=== PATIENT | female | born 1990 | race Caucasian/White ===

== ENCOUNTER 2016-12-09 11:43 | Emergency (ER) | payer OTHER ==
[2016-12-09] MEDS ORDERED: ONDANSETRON 4MG/2ML VIAL (J2405) As Ordered ONE (12:11)
[2016-12-09 12:29] LABS: BASO % 0.2 % (0.0-1.0); EOS % 0.6 % (0.0-3.0); LARGE UNSTAINED CELL # 0.1 K/mm3 (0.0-0.4); LARGE UNSTAINED CELL % 0.9 % (0.0-4.0); LYMPH % 11.3 % (24.0-44.0); MEAN CORPUSCULAR HEMOGLOBIN 32.5 pg (27.0-33.0); MEAN CORPUSCULAR HGB CONC 33.8 g/dl (32.0-36.5); MEAN CORPUSCULAR VOLUME 96.1 fl (80.0-96.0); MONO # 0.2 K/mm3 (0.0-0.8); MONO % 2.4 % (0.0-5.0); NEUTROPHILS # 7.6 K/mm3 (1.8-7.7); NEUTROPHILS % 84.5 % (36.0-66.0); PLATELET COUNT, AUTOMATED 291 k/mm3 (150-450); RED CELL DISTRIBUTION WIDTH 12.6 % (11.5-14.5); WHITE BLOOD COUNT 8.9 K/mm3 (4.0-10.0)
[2016-12-09 12:54] LABS: ALBUMIN/GLOBULIN RATIO 0.93 (1.00-1.93); ALKALINE PHOSPHATASE 44 U/L (45-117); ALT/SGPT 28 U/L (12-78); AMYLASE 127 U/L (25-115); ANION GAP 8 MEQ/L (8-16); AST/SGOT 19 U/L (15-37); BILIRUBIN,DIRECT < 0.1 MG/DL (0.0-0.2); BILIRUBIN,TOTAL 0.3 MG/DL (0.2-1.0); BLOOD UREA NITROGEN 9 MG/DL (7-18); CALCIUM LEVEL 8.7 MG/DL (8.5-10.1); CARBON DIOXIDE LEVEL 28 MEQ/L (21-32); CHLORIDE LEVEL 105 MEQ/L (98-107); CREATININE FOR GFR 0.93 MG/DL (0.55-1.02); GLOMERULAR FILTRATION RATE > 60.0 (>60); GLUCOSE, FASTING 99 MG/DL (70-105); POTASSIUM SERUM 3.8 MEQ/L (3.5-5.1); SODIUM LEVEL 141 MEQ/L (136-145); TOTAL PROTEIN 8.3 GM/DL (6.4-8.2)
[2016-12-09] MEDS ORDERED: KETOROLAC 30 MG/ML VIAL (J1885) As Ordered ONE (13:13)
[2016-12-09 13:28] LABS: AMPHETAMINES LEVEL URINE NEGATIVE (NEGATIVE); BENZODIAZEPINES URINE NEGATIVE (NEGATIVE); COCAINE METABOLITE URINE NEGATIVE (NEGATIVE); CONTROL LINE INT CTR LINE PRESENT; METHADONE URINE NEGATIVE (NEGATIVE); OPIATES URINE NEGATIVE (NEGATIVE); TRICYCLIC ANTIDEPRESS URINE NEGATIVE (NEGATIVE)
--- NOTE | 2016-12-09 14:07 | EDDOCDS ---
Physician Documentation [facility] Name: Samira Braden Age: 26 yrs Sex: Female : 1990 Arrival Date: 12/09/2016 Time: 11:43 Bed I4 / M4 Private MD: Aristeo Rankin [facility] Disposition: 12/09/16 14:00 Discharged to Home/Self Care. Impression: Nausea and vomiting, Diarrhea, unspecified, Generalized abdominal pain. - Condition is Stable. - Discharge Instructions: Abdominal Pain, Adult, Nausea and Vomiting, [id number], Diarrhea, [id number]. - Prescriptions for Reglan 10 mg Oral Tablet - take 1 tablet by ORAL route every 6 hours take 30 minutes before meals and at bedtime; 20 tablet. ZOFRAN ODT 4 mg - dissolve 1 tablet by ORAL route 4 times per day As needed do not chew, do not swallow whole; 10 tablet. ketorolac 10 mg Oral Tablet - take 1 tablet by ORAL route 3 times per day As needed MDD- 30mg. Up to 5 days total use.; 15 tablet. - Medication Reconciliation, Local Pharmacy Hours form. - Follow up: [facility] Aristeo Rankin; When: 1 - 2 days; Reason: Recheck today's complaints, Continuance of care. Follow up: Emergency Department; Reason: Worsening of conditions. - Problem is new. - Symptoms have improved. Historical: - Allergies: no known allergies; - Home Meds: 1. Acyclovir Unknown Oral 2 tabs 2 times per day 2. control 3. medication for UTI - PMHx: Herpes; - PSHx: wisdom tooth; - Social history: Smoking status: Patient states was never smoker of tobacco. No barriers to communication noted, The patient speaks fluent Peruvian, Speaks appropriately for age. - Family history: Not pertinent. - : The pt / caregiver states he / she is not on anticoagulants. Home medication list is obtained from the patient. - Exposure Risk Screening:: None identified. 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 6 in. (167.64 cm) (R); Pain 0/10; 13:32 Pain 2/10; js13 11:45 Body Mass Index 31.47 (88.45 kg, 167.64 cm) rs6 MDM: 12:01 NS 0.9% 1000 ml IV at bolus once ordered. ef1 12:01 Ondansetron 4 mg IVP once ordered. ef1 12:01 IV Saline Lock ordered. ef1 12:01 Undress patient appropriately for examination ordered. ef1 12:01 UCG by Nursing ordered. ef1 12:01 Amylase Ordered. EDMS 12:01 Basic Metabolic Profile Ordered. EDMS 12:01 CBC with Diff Ordered. EDMS 12:01 Lipase Ordered. EDMS 12:02 Liver Profile Ordered. EDMS 12:02 Urinalysis Ordered. EDMS 12:02 Urine Culture Ordered. EDMS 12:02 NOTHING BY MOUTH+DIET ordered. EDMS 12:30 Strep Screen, Nursing ordered. ef1 12:30 Obtain sample by nasopharyngeal swab ordered. ef1 12:31 ketorolac 30 mg IVP once ordered. ef1 12:31 Urine Toxicology Ordered. EDMS 12:31 -Influenza A&B Rapid Antigen - Nose Ordered. EDMS 12:33 Financial registration complete. mpb 12:38 Undo -Financial registration. mpb 12:41 GATS (NEGATIVE STREP SCREEN) Ordered. EDMS 12:53 Financial registration complete. mpb 12:53 [facility] Payment Agreement was scanned into [email or web address] and attached to record. mpb 13:08 Amylase Reviewed. ef1 13:08 CBC with Diff Reviewed. ef1 13:08 Liver Profile Reviewed. ef1 13:08 Basic Metabolic Profile Reviewed. ef1 13:08 Lipase Reviewed. ef1 13:08 -Influenza A&B Rapid Antigen - Nose Reviewed. ef1 13:13 NS 0.9% 1000 ml IV at bolus once ordered. ef1 13:27 Urinalysis Reviewed. ef1 13:53 Urine Toxicology Reviewed. ef1 Point of Care Testing: Urine : 13:12 hCG Reading: Negative; Control Reading: Positive; js13 13:13 hCG Reading: Negative; jam1 Ranges: Administered Medications: 12:24 Drug: NS 0.9% 1000 ml [sodium chloride 0.9 % intravenous solution] Route: IV; Rate: js13 bolus; Site: left antecubital; 13:32 Follow up: IV Status: Completed infusion; IV Intake: 1000ml 13 12:24 Drug: Ondansetron 4 mg [ondansetron HCl 2 mg/mL intravenous solution (2 mL)] Route: js13 IVP; Site: left antecubital; 12:50 Follow up: Response: Nausea is resolved 13 13:17 Drug: ketorolac 30 mg [ketorolac 30 mg/mL (1 mL) injection solution (1 mL)] Route: IVP; 13 Site: left antecubital; 13:32 Follow up: Pain 2/10 Adult; Response: Pain is decreased 13 13:17 Drug: NS 0.9% 1000 ml [sodium chloride 0.9 % intravenous solution] Route: IV; Rate: 13 bolus; Site: left antecubital; 13:49 Follow up: IV Status: Completed infusion; IV Intake: 1000ml 13 Signatures: Dispatcher [employer] EDHelene Treadwell RN RN [facility] Bobbi Rod, PA-C PA-C ef1 Eva Reynoso RN RN js13 Dennis Garcia, Luis Reg mpb The chart was reviewed and I authenticate all verbal orders and agree with the evaluation and treatment provided.Attachments: 12:53 [facility] Payment Agreement mpb MTDD
--- NOTE | 2016-12-09 14:07 | EDDOCDS ---
Nurse's Notes [facility] Name: Samira Braden Age: 26 yrs Sex: Female : 1990 Arrival Date: 12/09/2016 Time: 11:43 Bed I4 / M4 Private MD: Aristeo Rankin [facility] Diagnosis: Nausea and vomiting;Diarrhea, unspecified;Generalized abdominal pain Presentation: 12/09 11:50 Presenting complaint: Patient states: i think i have alcohol poisoning. i don't feel srm like normal hung over. mu vision is blurry, still feel like im drunk, vomited x4 and shit 4 times. cant get back to sleep. im having herpes outbreak and dont know if im reacting to that or if i drank too much. Adult Sepsis Screening: The patient does not have new or worsening altered mentation. Patient's respiratory rate is less than 22. Systolic blood pressure is greater than 100. Patient has a qSOFA score of 0- Negative Sepsis Screen. Suicide/Homicide risk assessment- the patient denies having any suicidal and/or homicidal ideations and does not present with any other emotional, behavioral or mental health complaints. 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 Transition of care: patient was not received from another setting of care. 11:50 Acuity: YONIS Level 3 [facility] 11:50 Method Of Arrival: Walkin/Carried/Asstd [facility] Triage Assessment: 11:53 General: Appears in no apparent distress, Behavior is appropriate for age, cooperative. srm Pain: Denies pain. 11:54 Pt Declines HIV testing. 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 Acyclovir Unknown Oral 2 tabs 2 times per day 2. control 3. medication for UTI - PMHx: Herpes; - PSHx: wisdom tooth; - Social history: Smoking status: Patient states was never smoker of tobacco. No barriers to communication noted, The patient speaks fluent Faroese, Speaks appropriately for age. - Family history: Not pertinent. - : The pt / caregiver states he / she is not on anticoagulants. Home medication list is obtained from the patient. - Exposure Risk Screening:: None identified. Screenin:24 Screening information is obtained from the patient. Fall risk: No risks identified. js13 Assistance ADL's: requires no assistance with activities of daily living. Abuse/DV Screen: The patient / caregiver reports he/she is: not in a situation that causes fear, pain or injury. Nutritional screening: No deficits noted. Advance Directives: There is no active DNR order. home support is adequate. Assessment: 12:24 General: Appears in no apparent distress, Behavior is appropriate for age, cooperative. js13 Pain: Denies pain. Neurological: Level of Consciousness is awake, alert. Respiratory: Airway is patent Respiratory effort is even, unlabored, Respiratory pattern is regular, symmetrical. GI: Abdomen is non- distended Bowel sounds present X 4 quads. Abd is soft and non tender Reports nausea. Derm: Skin is pink, warm & dry. 13:33 General: Appears in no apparent distress, Behavior is appropriate for age, cooperative. js13 Pain: Pain currently is 2 out of 10 on a pain scale. Neurological: Level of Consciousness is awake, alert. Respiratory: Airway is patent Respiratory effort is even, unlabored, Respiratory pattern is regular, symmetrical. GI: Abdomen is non- distended. Derm: Skin is pink, warm & dry. Vital Signs: 11:45 BP 159 / 93 RA Sitting (auto/lg); Pulse 90; Resp 16; Temp 98.2(T); Pulse Ox 100% on rs6 R/A; Weight 88.45 kg (R); Height 5 ft. 6 in. (167.64 cm) (R); Pain 0/10; 13:32 Pain 2/10; js13 11:45 Body Mass Index 31.47 (88.45 kg, 167.64 cm) rs6 Vitals: 11:45 Log In Time: December 09, 2016 at 11:45. rs6 12:39 Strep Screen is obtained and tested: Negative, a GATSNEG culture is ordered in [facility] js13 and sent. ED Course: 11:44 Patient visited by Estela Whatley PCA. rs6 11:44 Aristeo Rankin [facility] is Private Physician. rs6 11:44 Patient moved to Waiting rs6 11:46 Patient visited by Estela Whatley PCA. rs6 11:48 Patient moved to Pre RCE rs6 11:52 Triage Initiated srm 11:54 Bobbi Rod PA-C is PHCP. ef1 11:54 Margarita Cuevas MD is Attending Physician. ef1 12:06 Patient visited by Bobbi Rod PA-C. ef1 12:06 Patient moved to I4 / ef1 12:08 Pt greeted and oriented to ED. Patient advised of names of staff involved in care, jam1 location of call anders, wait times and NPO status. Patient has correct armband on for positive identification. Placed in gown. Bed in low position. Call light in reach. Side rails up X 1. Door closed. 12:23 Amylase Sent. js13 12:24 The patient / caregiver is instructed regarding the plan of care and ED course. js13 12:24 Basic Metabolic Profile Sent. js13 12:24 CBC with Diff Sent. js13 12:24 Lipase Sent. js13 12:24 Liver Profile Sent. js13 12:24 Inserted saline lock: 18 gauge in left antecubital area and blood collected. The js13 patient tolerated the procedure well. No procedures done that require assistance. Labs drawn. (by ED staff). Sent per order to lab. 12:25 Patient visited by Eva Reynoso,AVNI. js13 12:38 -Influenza A&B Rapid Antigen - Nose Sent. js13 12:43 Patient name changed from Samira\S\\S\Sampson\S\ to Samira\S\Ayaka\S\Sampson. EDMS 12:53 [facility] Payment Agreement was scanned into [employer] and attached to record. mpb 12:57 Patient visited by Bobbi Rod PA-C. ef1 13:08 Patient visited by Bobbi Rod PA-C. ef1 13:08 Urine Toxicology Sent. jam1 13:08 Urinalysis Sent. jam1 13:08 Urine Culture Sent. jam1 13:22 Patient visited by Ti Vanessa, AVNI. ml6 13:33 Patient visited by Eva Reynoso,AVNI. js13 14:00 Aristeo Rankin [facility] is Referral Physician. ef1 14:01 Discontinued IV lock intact, bleeding controlled, pressure dressing applied, No js13 redness/swelling at site. Administered Medications: 12:24 Drug: NS 0.9% 1000 ml [sodium chloride 0.9 % intravenous solution] Route: IV; Rate: js13 bolus; Site: left antecubital; 13:32 Follow up: IV Status: Completed infusion; IV Intake: 1000ml 13 12:24 Drug: Ondansetron 4 mg [ondansetron HCl 2 mg/mL intravenous solution (2 mL)] Route: js13 IVP; Site: left antecubital; 12:50 Follow up: Response: Nausea is resolved 13:17 Drug: ketorolac 30 mg [ketorolac 30 mg/mL (1 mL) injection solution (1 mL)] Route: IVP; 13 Site: left antecubital; 13:32 Follow up: Pain 2/10 Adult; Response: Pain is decreased 13:17 Drug: NS 0.9% 1000 ml [sodium chloride 0.9 % intravenous solution] Route: IV; Rate: 13 bolus; Site: left antecubital; 13:49 Follow up: IV Status: Completed infusion; IV Intake: 1000ml 13 Point of Care Testing: Urine : 13:12 hCG Reading: Negative; Control Reading: Positive; 13 13:13 hCG Reading: Negative; jam1 Ranges: Intake: 13:32 IV: 1000.00ml; Total: 1000.00ml. 13:49 IV: 1000.00ml; Total: 2000.00ml. 13 Order Results: Lab Order: Amylase; SPEC'M 12/09/16 12:13 Test: AMYLASE; Value: 127; Range: 25-115; Abnormal: Above high normal; Units: U/L; Status: F Lab Order: Basic Metabolic Profile; SPEC'M 12/09/16 12:13 Test: GLUCOSE, FASTING; Value: 99; Range: 70-105; Units: MG/DL; Status: F Test: BLOOD UREA NITROGEN; Value: 9; Range: 7-18; Units: MG/DL; Status: F Test: CREATININE FOR GFR; Value: 0.93; Range: 0.55-1.02; Units: MG/DL; Status: F Test: GLOMERULAR FILTRATION RATE; Value: > 60.0; Range: >60; Status: F Test: SODIUM LEVEL; Value: 141; Range: 136-145; Units: MEQ/L; Status: F Test: POTASSIUM SERUM; Value: 3.8; Range: 3.5-5.1; Units: MEQ/L; Status: F Test: CHLORIDE LEVEL; Value: 105; Range: 98-107; Units: MEQ/L; Status: F Test: CARBON DIOXIDE LEVEL; Value: 28; Range: 21-32; Units: MEQ/L; Status: F Test: ANION GAP; Value: 8; Range: 8-16; Units: MEQ/L; Status: F Test: CALCIUM LEVEL; Value: 8.7; Range: 8.5-10.1; Units: MG/DL; Status: F Test Note: ; Units are mL/min/1.73 m2 Chronic Kidney Disease Staging per NKF: Stage I & II GFR >=60 Normal to Mildly Decreased Stage III GFR 30-59 Moderately Decreased Stage IV GFR 15-29 Severely Decreased Stage V GFR <15 Very Little GFR Left ESRD GFR <15 on CLINICAL DOCUMENTATION DEVELOPER Lab Order: CBC with Diff; SPEC'M 12/09/16 12:13 Test: WHITE BLOOD COUNT; Value: 8.9; Range: 4.0-10.0; Units: K/mm3; Status: F Test: RED BLOOD COUNT; Value: 4.22; Range: 4.00-5.40; Units: M/mm3; Status: F Test: HEMOGLOBIN; Value: 13.7; Range: 12.0-16.0; Units: g/dl; Status: F Test: HEMATOCRIT; Value: 40.6; Range: 36.0-47.0; Units: %; Status: F Test: MEAN CORPUSCULAR VOLUME; Value: 96.1; Range: 80.0-96.0; Abnormal: Above high normal; Units: fl; Status: F Test: MEAN CORPUSCULAR HEMOGLOBIN; Value: 32.5; Range: 27.0-33.0; Units: pg; Status: F Test: MEAN CORPUSCULAR HGB CONC; Value: 33.8; Range: 32.0-36.5; Units: g/dl; Status: F Test: RED CELL DISTRIBUTION WIDTH; Value: 12.6; Range: 11.5-14.5; Units: %; Status: F Test: PLATELET COUNT, AUTOMATED; Value: 291; Range: 150-450; Units: k/mm3; Status: F Test: NEUTROPHILS %; Value: 84.5; Range: 36.0-66.0; Abnormal: Above high normal; Units: %; Status: F Test: LYMPH %; Value: 11.3; Range: 24.0-44.0; Abnormal: Below low normal; Units: %; Status: F Test: MONO %; Value: 2.4; Range: 0.0-5.0; Units: %; Status: F Test: EOS %; Value: 0.6; Range: 0.0-3.0; Units: %; Status: F Test: BASO %; Value: 0.2; Range: 0.0-1.0; Units: %; Status: F Test: LARGE UNSTAINED CELL %; Value: 0.9; Range: 0.0-4.0; Units: %; Status: F Test: NEUTROPHILS #; Value: 7.6; Range: 1.8-7.7; Units: K/mm3; Status: F Test: LYMPH #; Value: 1.0; Range: 1.5-6.5; Abnormal: Below low normal; Units: K/mm3; Status: F Test: MONO #; Value: 0.2; Range: 0.0-0.8; Units: K/mm3; Status: F Test: EOS #; Value: 0.0; Range: 0.0-0.50; Units: K/mm3; Status: F Test: BASO #; Value: 0.0; Range: 0.0-0.2; Units: K/mm3; Status: F Test: LARGE UNSTAINED CELL #; Value: 0.1; Range: 0.0-0.4; Units: K/mm3; Status: F Lab Order: Lipase; SPEC' 12/09/16 12:13 Test: LIPASE; Value: 112; Range: 73-393; Units: U/L; Status: F Lab Order: Liver Profile; SPEC' 12/09/16 12:13 Test: AST/SGOT; Value: 19; Range: 15-37; Units: U/L; Status: F Test: ALT/SGPT; Value: 28; Range: 12-78; Units: U/L; Status: F Test: ALKALINE PHOSPHATASE; Value: 44; Range: 45-117; Abnormal: Below low normal; Units: U/L; Status: F Test: BILIRUBIN,TOTAL; Value: 0.3; Range: 0.2-1.0; Units: MG/DL; Status: F Test: BILIRUBIN,DIRECT; Value: < 0.1; Range: 0.0-0.2; Units: MG/DL; Status: F Test: TOTAL PROTEIN; Value: 8.3; Range: 6.4-8.2; Abnormal: Above high normal; Units: GM/DL; Status: F Test: ALBUMIN; Value: 4.0; Range: 3.2-5.2; Units: GM/DL; Status: F Test: ALBUMIN/GLOBULIN RATIO; Value: 0.93; Range: 1.00-1.93; Abnormal: Below low normal; Status: F Lab Order: Urinalysis; SPEC'M 12/09/16 13:08 Test: APPEARANCE, URINE; Value: CLEAR; Range: CLEAR; Status: F Test: COLOR, URINE; Value: YELLOW; Range: YELLOW; Status: F Test: PH,URINE; Value: 8.0; Range: 5.0-9.0; Units: UNITS; Status: F Test: SPECIFIC GRAVITY URINE AUTO; Value: 1.021; Range: 1.002-1.035; Status: F Test: PROTEIN, URINE AUTO; Value: 1+; Range: NEGATIVE; Abnormal: Above high normal; Units: mg/dL; Status: F Test: GLUCOSE, URINE (UA) AUTO; Value: NEGATIVE; Range: NEGATIVE; Units: mg/dL; Status: F Test: KETONE, URINE AUTO; Value: NEGATIVE; Range: NEGATIVE; Units: mg/dL; Status: F Test: UROBILINOGEN, URINE AUTO; Value: 0.2; Range: 0.0-2.0; Units: mg/dL; Status: F Test: BILIRUBIN, URINE AUTO; Value: NEGATIVE; Range: NEGATIVE; Status: F Test: NITRITE, URINE AUTO; Value: NEGATIVE; Range: NEGATIVE; Status: F Test: LEUKOCYTE ESTERASE, URINE AUTO; Value: NEGATIVE; Range: NEGATIVE; Status: F Test: BLOOD, URINE BLOOD; Value: NEGATIVE; Range: NEGATIVE; Status: F Test: WBC, URINE AUTO; Value: 1; Range: 0-3; Units: /HPF; Status: F Test: RBC, URINE AUTO; Value: 2; Range: 0-3; Units: /HPF; Status: F Test: BACTERIA, URINE AUTO; Value: 1+; Range: NEGATIVE; Abnormal: Above high normal; Status: F Test: SQUAMOUS EPITHELIAL CELL UR AU; Value: 1; Range: 0-6; Units: /HPF; Status: F Test: MUCUS, URINE; Value: SMALL; Range: NEGATIVE; Status: F Test: HYALINE CAST, URINE AUTO; Value: 0; Range: 0-1; Units: /LPF; Status: F Lab Order: Urine Toxicology; SPEC'M 12/09/16 13:08 Test: AMPHETAMINES LEVEL URINE; Value: NEGATIVE; Range: NEGATIVE; Status: F Test: BARBITURATES URINE; Value: NEGATIVE; Range: NEGATIVE; Status: F Test: BENZODIAZEPINES URINE; Value: NEGATIVE; Range: NEGATIVE; Status: F Test: CANNABINOIDS URINE; Value: NEGATIVE; Range: NEGATIVE; Status: F Test: COCAINE METABOLITE URINE; Value: NEGATIVE; Range: NEGATIVE; Status: F Test: METHADONE URINE; Value: NEGATIVE; Range: NEGATIVE; Status: F Test: OPIATES URINE; Value: NEGATIVE; Range: NEGATIVE; Status: F Test: TRICYCLIC ANTIDEPRESS URINE; Value: NEGATIVE; Range: NEGATIVE; Status: F Test Note: ; ALL PRESUMPTIVE POSITIVE FINDINGS ARE UNCONFIRMED NORMAL VALUES THRESHOLD IN NG/ML AMPHETAMINES 1000 METHAMPHETAMINES 1000 BARBITURATES 300 BENZODIAZEPINES 300 CANNABINOIDS (THC) 50 COCAINE METABOLITE 300 METHADONE 300 OPIATES 300 PHENCYCLIDINE 25 TRICYCLIC ANTIDEPRESSANTS 1000 RESULTS ARE FOR MEDICAL PURPOSES ONLY. ALL URINE SPECIMENS WILL BE SAVED FOR 3 DAYS. IF CONFIRMATION OF A PRESUMPTIVE POSTIVE SCREEN RESULT IS DESIRED, CALL CHEMISTRY ([phone]) AND REQUEST URINE TO BE SENT TO REFERENCE LAB. FOR A LIST OF CLOSELY RELATED COMPOUNDS PLEASE CALL THE LAB. Lab Order: -Influenza A&B Rapid Antigen - Nose; SPEC'M 12/09/16 12:33 Test: INFLUENZA A RAPID SCR by ICA; Value: INFLUENZA A RESULTS NEGATIVE; Status: F Test: INFLUENZA A RAPID SCR by ICA; Value: Comments:; Status: F Test: INFLUENZA B RAPID SCR by ICA; Value: INFLUENZA B RESULTS NEGATIVE; Status: F Test Note: ; The Influenza test is a direct rapid immunoassay for the qualitative detection of Influenza viral antigen. Cell culture (Viral Culture) testing should be considered to confirm NEGATIVE results and to assist in detecting other viruses that can provide similar clinical symptoms. Please contact the lab within 24 hours ([phone]) if confirmatory testing is desired. Outcome: 14:00 Discharge ordered by Provider. ef1 14:01 Discharge Assessment: Patient awake, alert and oriented x 3. No cognitive and/or js13 functional deficits noted. Patient verbalized understanding of disposition instructions. patient administered narcotics - no. The following High Risk Discharge criteria are identified: None. Discharged to home ambulatory. Condition: stable. Discharge instructions given to patient, Instructed on discharge instructions, follow up and referral plans. medication usage, Demonstrated understanding of instructions, medications, Pt was receptive of discharge instructions/ teaching. Prescriptions given X 3. No special radiology studies were completed. Property :Personal belongings accompany Pt. 14:06 Patient left the ED. js13 Signatures: Dispatcher [employer] EDMS Helene Forrest, RN RN Shantel Cristina, FINISHING MACHINE OPERATOR FINISHING MACHINE OPERATOR jam1 Bobbi Rod, PA-C PA-C ef1 Ti Vanessa, RN RN ml6 Eva Reynoso RN RN js13 Estela Whatley, FINISHING MACHINE OPERATOR FINISHING MACHINE OPERATOR rs6 Dennis Garcia, Reg Reg mpb MTDD
--- NOTE | 2016-12-11 15:07 | EDDOCDS ---
Physician Documentation [facility] Name: Samira Braden Age: 26 yrs Sex: Female : 1990 Arrival Date: 12/09/2016 Time: 11:43 Bed I4 / M4 Private MD: Aristeo Rankin [facility] Disposition: 12/09/16 14:00 Discharged to Home/Self Care. Impression: Nausea and vomiting, Diarrhea, unspecified, Generalized abdominal pain. - Condition is Stable. - Discharge Instructions: Abdominal Pain, Adult, Nausea and Vomiting, [id number], Diarrhea, [id number]. - Prescriptions for Reglan 10 mg Oral Tablet - take 1 tablet by ORAL route every 6 hours take 30 minutes before meals and at bedtime; 20 tablet. ZOFRAN ODT 4 mg - dissolve 1 tablet by ORAL route 4 times per day As needed do not chew, do not swallow whole; 10 tablet. ketorolac 10 mg Oral Tablet - take 1 tablet by ORAL route 3 times per day As needed MDD- 30mg. Up to 5 days total use.; 15 tablet. - Medication Reconciliation, Local Pharmacy Hours form. - Follow up: [facility] Aristeo Rankin; When: 1 - 2 days; Reason: Recheck today's complaints, Continuance of care. Follow up: Emergency Department; Reason: Worsening of conditions. - Problem is new. - Symptoms have improved. Historical: - Allergies: no known allergies; - Home Meds: 1. Acyclovir Unknown Oral 2 tabs 2 times per day 2. control 3. medication for UTI - PMHx: Herpes; - PSHx: wisdom tooth; - Social history: Smoking status: Patient states was never smoker of tobacco. No barriers to communication noted, The patient speaks fluent Malagasy, Speaks appropriately for age. - Family history: Not pertinent. - : The pt / caregiver states he / she is not on anticoagulants. Home medication list is obtained from the patient. - Exposure Risk Screening:: None identified. 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 6 in. (167.64 cm) (R); Pain 0/10; 13:32 Pain 2/10; js13 14:08 BP 159 / 69; Pulse 68; Resp 20; Temp 98.4; Pulse Ox 99% ; Pain 0/10; jam1 11:45 Body Mass Index 31.47 (88.45 kg, 167.64 cm) rs6 MDM: 12:01 NS 0.9% 1000 ml IV at bolus once ordered. ef1 12:01 Ondansetron 4 mg IVP once ordered. ef1 12:01 IV Saline Lock ordered. ef1 12:01 Undress patient appropriately for examination ordered. ef1 12:01 UCG by Nursing ordered. ef1 12:01 Amylase Ordered. EDMS 12:01 Basic Metabolic Profile Ordered. EDMS 12:01 CBC with Diff Ordered. EDMS 12:01 Lipase Ordered. EDMS 12:02 Liver Profile Ordered. EDMS 12:02 Urinalysis Ordered. EDMS 12:02 Urine Culture Ordered. EDMS 12:02 NOTHING BY MOUTH+DIET ordered. EDMS 12:30 Strep Screen, Nursing ordered. ef1 12:30 Obtain sample by nasopharyngeal swab ordered. ef1 12:31 ketorolac 30 mg IVP once ordered. ef1 12:31 Urine Toxicology Ordered. EDMS 12:31 -Influenza A&B Rapid Antigen - Nose Ordered. EDMS 12:33 Financial registration complete. mpb 12:38 Undo -Financial registration. mpb 12:41 GATS (NEGATIVE STREP SCREEN) Ordered. EDMS 12:53 Financial registration complete. mpb 12:53 [facility] Payment Agreement was scanned into RFEyeD and attached to record. mpb 13:08 Amylase Reviewed. ef1 13:08 CBC with Diff Reviewed. ef1 13:08 Liver Profile Reviewed. ef1 13:08 Basic Metabolic Profile Reviewed. ef1 13:08 Lipase Reviewed. ef1 13:08 -Influenza A&B Rapid Antigen - Nose Reviewed. ef1 13:13 NS 0.9% 1000 ml IV at bolus once ordered. ef1 13:27 Urinalysis Reviewed. ef1 13:53 Urine Toxicology Reviewed. ef1 14:15 T-Sheet-- Draft Copy was scanned into RFEyeD and attached to record. gb Point of Care Testing: Urine : 13:12 hCG Reading: Negative; Control Reading: Positive; js13 13:13 hCG Reading: Negative; jam1 Ranges: Administered Medications: 12:24 Drug: NS 0.9% 1000 ml [sodium chloride 0.9 % intravenous solution] Route: IV; Rate: js13 bolus; Site: left antecubital; 13:32 Follow up: IV Status: Completed infusion; IV Intake: 1000ml js13 12:24 Drug: Ondansetron 4 mg [ondansetron HCl 2 mg/mL intravenous solution (2 mL)] Route: js13 IVP; Site: left antecubital; 12:50 Follow up: Response: Nausea is resolved 13 13:17 Drug: ketorolac 30 mg [ketorolac 30 mg/mL (1 mL) injection solution (1 mL)] Route: IVP; 13 Site: left antecubital; 13:32 Follow up: Pain 2/10 Adult; Response: Pain is decreased 13:17 Drug: NS 0.9% 1000 ml [sodium chloride 0.9 % intravenous solution] Route: IV; Rate: js13 bolus; Site: left antecubital; 13:49 Follow up: IV Status: Completed infusion; IV Intake: 1000ml Signatures: Dispatcher MedHost EDHelene Treadwell RN RN [facility] Sarah Kaye, Reg Reg gb Bobbi Rod PAJosette PA-C ef1 Eva ReynosoRN RN js13 Dennis Garcia, Reg Reg mpb The chart was reviewed and I authenticate all verbal orders and agree with the evaluation and treatment provided.Attachments: 12:53 [facility] [place] [facility] [place] Agreement mpb 14:15 T-Sheet-- Draft Copy Chart Complete MTDD
--- NOTE | 2016-12-11 15:07 | EDDOCDS ---
Nurse's Notes [facility] Name: Samira Braden Age: 26 yrs Sex: Female : 1990 Arrival Date: 12/09/2016 Time: 11:43 Bed I4 / M4 Private MD: Aristeo Rankin [facility] Diagnosis: Nausea and vomiting;Diarrhea, unspecified;Generalized abdominal pain Presentation: 12/09 11:50 Presenting complaint: Patient states: i think i have alcohol poisoning. i don't feel srm like normal hung over. mu vision is blurry, still feel like im drunk, vomited x4 and shit 4 times. cant get back to sleep. im having herpes outbreak and dont know if im reacting to that or if i drank too much. Adult Sepsis Screening: The patient does not have new or worsening altered mentation. Patient's respiratory rate is less than 22. Systolic blood pressure is greater than 100. Patient has a qSOFA score of 0- Negative Sepsis Screen. Suicide/Homicide risk assessment- the patient denies having any suicidal and/or homicidal ideations and does not present with any other emotional, behavioral or mental health complaints. 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 Transition of care: patient was not received from another setting of care. 11:50 Acuity: YONIS Level 3 [facility] [place] 11:50 Method Of Arrival: Walkin/Carried/[place] [facility] [place] Assessment: 11:53 General: Appears in no apparent distress, Behavior is appropriate for age, cooperative. srm Pain: Denies pain. 11:54 Pt Declines HIV testing. 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 Acyclovir Unknown Oral 2 tabs 2 times per day 2. control 3. medication for UTI - PMHx: Herpes; - PSHx: wisdom tooth; - Social history: Smoking status: Patient states was never smoker of tobacco. No barriers to communication noted, The patient speaks fluent Syriac, Speaks appropriately for age. - Family history: Not pertinent. - : The pt / caregiver states he / she is not on anticoagulants. Home medication list is obtained from the patient. - Exposure Risk Screening:: None identified. Screenin:24 Screening information is obtained from the patient. Fall risk: No risks identified. js13 Assistance ADL's: requires no assistance with activities of daily living. Abuse/DV Screen: The patient / caregiver reports he/she is: not in a situation that causes fear, pain or injury. Nutritional screening: No deficits noted. Advance Directives: There is no active DNR order. home support is adequate. Assessment: 12:24 General: Appears in no apparent distress, Behavior is appropriate for age, cooperative. js13 Pain: Denies pain. Neurological: Level of Consciousness is awake, alert. Respiratory: Airway is patent Respiratory effort is even, unlabored, Respiratory pattern is regular, symmetrical. GI: Abdomen is non- distended Bowel sounds present X 4 quads. Abd is soft and non tender Reports nausea. Derm: Skin is pink, warm & dry. 13:33 General: Appears in no apparent distress, Behavior is appropriate for age, cooperative. js13 Pain: Pain currently is 2 out of 10 on a pain scale. Neurological: Level of Consciousness is awake, alert. Respiratory: Airway is patent Respiratory effort is even, unlabored, Respiratory pattern is regular, symmetrical. GI: Abdomen is non- distended. Derm: Skin is pink, warm & dry. Vital Signs: 11:45 BP 159 / 93 RA Sitting (auto/lg); Pulse 90; Resp 16; Temp 98.2(T); Pulse Ox 100% on rs6 R/A; Weight 88.45 kg (R); Height 5 ft. 6 in. (167.64 cm) (R); Pain 0/10; 13:32 Pain 2/10; js13 14:08 BP 159 / 69; Pulse 68; Resp 20; Temp 98.4; Pulse Ox 99% ; Pain 0/10; jam1 11:45 Body Mass Index 31.47 (88.45 kg, 167.64 cm) rs6 Vitals: 11:45 Log In Time: December 09, 2016 at 11:45. rs6 12:39 Strep Screen is obtained and tested: Negative, a GATSNEG culture is ordered in [facility] js13 and sent. ED Course: 11:44 Patient visited by Estela Whatley PCA. rs6 11:44 [facility] rs6 11:44 Patient moved to Waiting rs6 11:46 Patient visited by Estela Whatley PCA. rs6 11:48 Patient moved to Pre RCE rs6 11:52 Triage Initiated srm 11:54 Bobbi Rod PA-C is [facility]. ef1 11:54 Margarita Cuevas MD is Attending Physician. ef1 12:06 Patient visited by Bobbi Rod PA-C. ef1 12:06 Patient moved to I4 / M4 ef1 12:08 Pt greeted and oriented to ED. Patient advised of names of staff involved in care, jam1 location of call anders, wait times and NPO status. Patient has correct armband on for positive identification. Placed in gown. Bed in low position. Call light in reach. Side rails up X 1. Door closed. 12:23 Amylase Sent. js13 12:24 The patient / caregiver is instructed regarding the plan of care and ED course. js13 12:24 Basic Metabolic Profile Sent. js13 12:24 CBC with Diff Sent. js13 12:24 Lipase Sent. js13 12:24 Liver Profile Sent. js13 12:24 Inserted saline lock: 18 gauge in left antecubital area and blood collected. The js13 patient tolerated the procedure well. No procedures done that require assistance. Labs drawn. (by ED staff). Sent per order to lab. 12:25 Patient visited by Eva Reynoso RN. js13 12:38 -Influenza A&B Rapid Antigen - Nose Sent. js13 12:43 Patient name changed from Samira\S\\S\Sampson\S\ to Samira\S\Ayaka\S\Sampson. EDMS 12:53 [facility] Payment Agreement was scanned into Qualtré and attached to record. mpb 12:57 Patient visited by Bobbi Rod PA-C. ef1 13:08 Patient visited by Bobbi Rod PA-C. ef1 13:08 Urine Toxicology Sent. jam1 13:08 Urinalysis Sent. jam1 13:08 Urine Culture Sent. jam1 13:22 Patient visited by Ti Vanessa RN. ml6 13:33 Patient visited by Eva Reynoso,AVNI. js13 14:00 Aristeo Rankin [facility] is Referral Physician. ef1 14:01 Discontinued IV lock intact, bleeding controlled, pressure dressing applied, No js13 redness/swelling at site. 14:15 T-Sheet-- Draft Copy was scanned into Qualtré and attached to record. gb Administered Medications: 12:24 Drug: NS 0.9% 1000 ml [sodium chloride 0.9 % intravenous solution] Route: IV; Rate: js13 bolus; Site: left antecubital; 13:32 Follow up: IV Status: Completed infusion; IV Intake: 1000ml 13 12:24 Drug: Ondansetron 4 mg [ondansetron HCl 2 mg/mL intravenous solution (2 mL)] Route: js13 IVP; Site: left antecubital; 12:50 Follow up: Response: Nausea is resolved 13 13:17 Drug: ketorolac 30 mg [ketorolac 30 mg/mL (1 mL) injection solution (1 mL)] Route: IVP; 13 Site: left antecubital; 13:32 Follow up: Pain 2/10 Adult; Response: Pain is decreased 13 13:17 Drug: NS 0.9% 1000 ml [sodium chloride 0.9 % intravenous solution] Route: IV; Rate: js13 bolus; Site: left antecubital; 13:49 Follow up: IV Status: Completed infusion; IV Intake: 1000ml 13 Point of Care Testing: Urine : 13:12 hCG Reading: Negative; Control Reading: Positive; 13 13:13 hCG Reading: Negative; jam1 Ranges: Intake: 13:32 IV: 1000.00ml; Total: 1000.00ml. 13 13:49 IV: 1000.00ml; Total: 2000.00ml. js13 Order Results: Lab Order: Amylase; SPEC'M 12/09/16 12:13 Test: AMYLASE; Value: 127; Range: 25-115; Abnormal: Above high normal; Units: U/L; Status: F Lab Order: Basic Metabolic Profile; SPEC'M 12/09/16 12:13 Test: GLUCOSE, FASTING; Value: 99; Range: 70-105; Units: MG/DL; Status: F Test: BLOOD UREA NITROGEN; Value: 9; Range: 7-18; Units: MG/DL; Status: F Test: CREATININE FOR GFR; Value: 0.93; Range: 0.55-1.02; Units: MG/DL; Status: F Test: GLOMERULAR FILTRATION RATE; Value: > 60.0; Range: >60; Status: F Test: SODIUM LEVEL; Value: 141; Range: 136-145; Units: MEQ/L; Status: F Test: POTASSIUM SERUM; Value: 3.8; Range: 3.5-5.1; Units: MEQ/L; Status: F Test: CHLORIDE LEVEL; Value: 105; Range: 98-107; Units: MEQ/L; Status: F Test: CARBON DIOXIDE LEVEL; Value: 28; Range: 21-32; Units: MEQ/L; Status: F Test: ANION GAP; Value: 8; Range: 8-16; Units: MEQ/L; Status: F Test: CALCIUM LEVEL; Value: 8.7; Range: 8.5-10.1; Units: MG/DL; Status: F Test Note: ; Units are mL/min/1.73 m2 Chronic Kidney Disease Staging per NKF: Stage I & II GFR >=60 Normal to Mildly Decreased Stage III GFR 30-59 Moderately Decreased Stage IV GFR 15-29 Severely Decreased Stage V GFR <15 Very Little GFR Left ESRD GFR <15 on CLINICAL LABORATORY SCIENCE PROFESSOR Lab Order: CBC with Diff; SPEC'M 12/09/16 12:13 Test: WHITE BLOOD COUNT; Value: 8.9; Range: 4.0-10.0; Units: K/mm3; Status: F Test: RED BLOOD COUNT; Value: 4.22; Range: 4.00-5.40; Units: M/mm3; Status: F Test: HEMOGLOBIN; Value: 13.7; Range: 12.0-16.0; Units: g/dl; Status: F Test: HEMATOCRIT; Value: 40.6; Range: 36.0-47.0; Units: %; Status: F Test: MEAN CORPUSCULAR VOLUME; Value: 96.1; Range: 80.0-96.0; Abnormal: Above high normal; Units: fl; Status: F Test: MEAN CORPUSCULAR HEMOGLOBIN; Value: 32.5; Range: 27.0-33.0; Units: pg; Status: F Test: MEAN CORPUSCULAR HGB CONC; Value: 33.8; Range: 32.0-36.5; Units: g/dl; Status: F Test: RED CELL DISTRIBUTION WIDTH; Value: 12.6; Range: 11.5-14.5; Units: %; Status: F Test: PLATELET COUNT, AUTOMATED; Value: 291; Range: 150-450; Units: k/mm3; Status: F Test: NEUTROPHILS %; Value: 84.5; Range: 36.0-66.0; Abnormal: Above high normal; Units: %; Status: F Test: LYMPH %; Value: 11.3; Range: 24.0-44.0; Abnormal: Below low normal; Units: %; Status: F Test: MONO %; Value: 2.4; Range: 0.0-5.0; Units: %; Status: F Test: EOS %; Value: 0.6; Range: 0.0-3.0; Units: %; Status: F Test: BASO %; Value: 0.2; Range: 0.0-1.0; Units: %; Status: F Test: LARGE UNSTAINED CELL %; Value: 0.9; Range: 0.0-4.0; Units: %; Status: F Test: NEUTROPHILS #; Value: 7.6; Range: 1.8-7.7; Units: K/mm3; Status: F Test: LYMPH #; Value: 1.0; Range: 1.5-6.5; Abnormal: Below low normal; Units: K/mm3; Status: F Test: MONO #; Value: 0.2; Range: 0.0-0.8; Units: K/mm3; Status: F Test: EOS #; Value: 0.0; Range: 0.0-0.50; Units: K/mm3; Status: F Test: BASO #; Value: 0.0; Range: 0.0-0.2; Units: K/mm3; Status: F Test: LARGE UNSTAINED CELL #; Value: 0.1; Range: 0.0-0.4; Units: K/mm3; Status: F Lab Order: Lipase; SPEC'M 12/09/16 12:13 Test: LIPASE; Value: 112; Range: 73-393; Units: U/L; Status: F Lab Order: Liver Profile; SPEC'M 12/09/16 12:13 Test: AST/SGOT; Value: 19; Range: 15-37; Units: U/L; Status: F Test: ALT/SGPT; Value: 28; Range: 12-78; Units: U/L; Status: F Test: ALKALINE PHOSPHATASE; Value: 44; Range: 45-117; Abnormal: Below low normal; Units: U/L; Status: F Test: BILIRUBIN,TOTAL; Value: 0.3; Range: 0.2-1.0; Units: MG/DL; Status: F Test: BILIRUBIN,DIRECT; Value: < 0.1; Range: 0.0-0.2; Units: MG/DL; Status: F Test: TOTAL PROTEIN; Value: 8.3; Range: 6.4-8.2; Abnormal: Above high normal; Units: GM/DL; Status: F Test: ALBUMIN; Value: 4.0; Range: 3.2-5.2; Units: GM/DL; Status: F Test: ALBUMIN/GLOBULIN RATIO; Value: 0.93; Range: 1.00-1.93; Abnormal: Below low normal; Status: F Lab Order: Urinalysis; SPEC'M 12/09/16 13:08 Test: APPEARANCE, URINE; Value: CLEAR; Range: CLEAR; Status: F Test: COLOR, URINE; Value: YELLOW; Range: YELLOW; Status: F Test: PH,URINE; Value: 8.0; Range: 5.0-9.0; Units: UNITS; Status: F Test: SPECIFIC GRAVITY URINE AUTO; Value: 1.021; Range: 1.002-1.035; Status: F Test: PROTEIN, URINE AUTO; Value: 1+; Range: NEGATIVE; Abnormal: Above high normal; Units: mg/dL; Status: F Test: GLUCOSE, URINE (UA) AUTO; Value: NEGATIVE; Range: NEGATIVE; Units: mg/dL; Status: F Test: KETONE, URINE AUTO; Value: NEGATIVE; Range: NEGATIVE; Units: mg/dL; Status: F Test: UROBILINOGEN, URINE AUTO; Value: 0.2; Range: 0.0-2.0; Units: mg/dL; Status: F Test: BILIRUBIN, URINE AUTO; Value: NEGATIVE; Range: NEGATIVE; Status: F Test: NITRITE, URINE AUTO; Value: NEGATIVE; Range: NEGATIVE; Status: F Test: LEUKOCYTE ESTERASE, URINE AUTO; Value: NEGATIVE; Range: NEGATIVE; Status: F Test: BLOOD, URINE BLOOD; Value: NEGATIVE; Range: NEGATIVE; Status: F Test: WBC, URINE AUTO; Value: 1; Range: 0-3; Units: /HPF; Status: F Test: RBC, URINE AUTO; Value: 2; Range: 0-3; Units: /HPF; Status: F Test: BACTERIA, URINE AUTO; Value: 1+; Range: NEGATIVE; Abnormal: Above high normal; Status: F Test: SQUAMOUS EPITHELIAL CELL UR AU; Value: 1; Range: 0-6; Units: /HPF; Status: F Test: MUCUS, URINE; Value: SMALL; Range: NEGATIVE; Status: F Test: HYALINE CAST, URINE AUTO; Value: 0; Range: 0-1; Units: /LPF; Status: F Lab Order: Urine Culture; SPEC'M 12/09/16 13:08 Test: URINE CULTURE; Value: <EXTERNAL COMMENT eCWMed> FULL REPORT IN LAB NOTES (eCW and Medent).; Status: F Test: URINE CULTURE; Value: URINE CULTURE RESULT NO GROWTH; Status: F Lab Order: Urine Toxicology; SPEC'M 12/09/16 13:08 Test: AMPHETAMINES LEVEL URINE; Value: NEGATIVE; Range: NEGATIVE; Status: F Test: BARBITURATES URINE; Value: NEGATIVE; Range: NEGATIVE; Status: F Test: BENZODIAZEPINES URINE; Value: NEGATIVE; Range: NEGATIVE; Status: F Test: CANNABINOIDS URINE; Value: NEGATIVE; Range: NEGATIVE; Status: F Test: COCAINE METABOLITE URINE; Value: NEGATIVE; Range: NEGATIVE; Status: F Test: METHADONE URINE; Value: NEGATIVE; Range: NEGATIVE; Status: F Test: OPIATES URINE; Value: NEGATIVE; Range: NEGATIVE; Status: F Test: TRICYCLIC ANTIDEPRESS URINE; Value: NEGATIVE; Range: NEGATIVE; Status: F Test Note: ; ALL PRESUMPTIVE POSITIVE FINDINGS ARE UNCONFIRMED NORMAL VALUES THRESHOLD IN NG/ML AMPHETAMINES 1000 METHAMPHETAMINES 1000 BARBITURATES 300 BENZODIAZEPINES 300 CANNABINOIDS (THC) 50 COCAINE METABOLITE 300 METHADONE 300 OPIATES 300 PHENCYCLIDINE 25 TRICYCLIC ANTIDEPRESSANTS 1000 RESULTS ARE FOR MEDICAL PURPOSES ONLY. ALL URINE SPECIMENS WILL BE SAVED FOR 3 DAYS. IF CONFIRMATION OF A PRESUMPTIVE POSTIVE SCREEN RESULT IS DESIRED, CALL CHEMISTRY ([phone]) AND REQUEST URINE TO BE SENT TO REFERENCE LAB. FOR A LIST OF CLOSELY RELATED COMPOUNDS PLEASE CALL THE LAB. Lab Order: -Influenza A&B Rapid Antigen - Nose; SPEC'M 02/05/17 12:33 Test: INFLUENZA A RAPID SCR by ICA; Value: INFLUENZA A RESULTS NEGATIVE; Status: F Test: INFLUENZA A RAPID SCR by ICA; Value: Comments:; Status: F Test: INFLUENZA B RAPID SCR by ICA; Value: INFLUENZA B RESULTS NEGATIVE; Status: F Test Note: ; The Influenza test is a direct rapid immunoassay for the qualitative detection of Influenza viral antigen. Cell culture (Viral Culture) testing should be considered to confirm NEGATIVE results and to assist in detecting other viruses that can provide similar clinical symptoms. Please contact the lab within 24 hours ([phone]) if confirmatory testing is desired. Lab Order: GATS (NEGATIVE STREP SCREEN); SPEC'M 12/09/16 12:33 Test: GATS CULTURE (NEG STREP SCR); Value: GATS RESULT NEGATIVE FOR STREP PYOGENES (GROUP A); Status: F Test: GATS CULTURE (NEG STREP SCR); Value: <EXTERNAL COMMENT eCWMed> FULL REPORT IN LAB NOTES (eCW and Medent).; Status: F Test: GATS CULTURE (NEG STREP SCR); Value: ORGANISM 1: STREP AGALACTIAE GROUP B; Status: F Test: GATS CULTURE (NEG STREP SCR); Value: STREP AGALACTIAE GROUP B; Status: F Test: GATS CULTURE (NEG STREP SCR); Value: QUANTITY OF GROWTH FEW; Status: F Outcome: 14:00 Discharge ordered by Provider. ef1 14:01 Discharge Assessment: Patient awake, alert and oriented x 3. No cognitive and/or js13 functional deficits noted. Patient verbalized understanding of disposition instructions. patient administered narcotics - no. The following High Risk Discharge criteria are identified: None. Discharged to home ambulatory. Condition: stable. Discharge instructions given to patient, Instructed on discharge instructions, follow up and referral plans. medication usage, Demonstrated understanding of instructions, medications, Pt was receptive of discharge instructions/ teaching. Prescriptions given X 3. No special radiology studies were completed. Property :Personal belongings accompany Pt. 14:06 Patient left the ED. js13 Signatures: Dispatcher MedHost EDMS Helene Forrest, RN RN Shantel Cristina, ABENA HIDE PULLER jam1 Sarah Kaye, Reg Reg gb Bobbi Rod, PA-C PA-C ef1 Ti Vanessa RN RN ml6 Eva Reynoso RN RN js13 Phylicia Estela, HIDE PULLER HIDE PULLER rs6 Dennis Garcia, Reg Reg mpb Chart Complete MTDD
--- NOTE | 2016-12-11 15:07 | EDDOCDS ---
Physician Documentation [facility] Name: Samira Braden Age: 26 yrs Sex: Female : 1990 Arrival Date: 12/09/2016 Time: 11:43 Bed I4 / M4 Private MD: Aristeo Rankin [facility] Disposition: 12/09/16 14:00 Discharged to Home/Self Care. Impression: Nausea and vomiting, Diarrhea, unspecified, Generalized abdominal pain. - Condition is Stable. - Discharge Instructions: Abdominal Pain, Adult, Nausea and Vomiting, [id number], Diarrhea, [id number]-[id number]. - Prescriptions for Reglan 10 mg Oral Tablet - take 1 tablet by ORAL route every 6 hours take 30 minutes before meals and at bedtime; 20 tablet. ZOFRAN ODT 4 mg - dissolve 1 tablet by ORAL route 4 times per day As needed do not chew, do not swallow whole; 10 tablet. ketorolac 10 mg Oral Tablet - take 1 tablet by ORAL route 3 times per day As needed MDD- 30mg. Up to 5 days total use.; 15 tablet. - Medication Reconciliation, Local Pharmacy Hours form. - Follow up: [facility] Aristeo Rankin; When: 1 - 2 days; Reason: Recheck today's complaints, Continuance of care. Follow up: Emergency Department; Reason: Worsening of conditions. - Problem is new. - Symptoms have improved. Historical: - Allergies: no known allergies; - Home Meds: 1. Acyclovir Unknown Oral 2 tabs 2 times per day 2. control 3. medication for UTI - PMHx: Herpes; - PSHx: wisdom tooth; - Social history: Smoking status: Patient states was never smoker of tobacco. No barriers to communication noted, The patient speaks fluent [place], Speaks appropriately for age. - Family history: Not pertinent. - : The pt / caregiver states he / she is not on anticoagulants. Home medication list is obtained from the patient. - Exposure Risk Screening:: None identified. [employer]PER[employer]: 12/09 11:54 LMP 11/21/2016 srm Vital Signs: 11:45 BP 159 / 93 RA Sitting (auto/lg); Pulse 90; Resp 16; Temp 98.2(T); Pulse Ox 100% on rs6 R/A; Weight 88.45 kg / 195 lbs (R); Height 5 ft. 6 in. (167.64 cm) (R); Pain 0/10; 13:32 Pain 2/10; js13 14:08 BP 159 / 69; Pulse 68; Resp 20; Temp 98.4; Pulse Ox 99% ; Pain 0/10; jam1 11:45 Body Mass Index 31.47 (88.45 kg, 167.64 cm) rs6 MDM: 12:01 NS 0.9% 1000 ml IV at bolus once ordered. ef1 12:01 Ondansetron 4 mg IVP once ordered. ef1 12:01 IV Saline Lock ordered. ef1 12:01 Undress patient appropriately for examination ordered. ef1 12:01 UCG by Nursing ordered. ef1 12:01 Amylase Ordered. EDMS 12:01 Basic Metabolic Profile Ordered. EDMS 12:01 CBC with Diff Ordered. EDMS 12:01 Lipase Ordered. EDMS 12:02 Liver Profile Ordered. EDMS 12:02 Urinalysis Ordered. EDMS 12:02 Urine Culture Ordered. EDMS 12:02 NOTHING BY MOUTH+DIET ordered. EDMS 12:30 Strep Screen, Nursing ordered. ef1 12:30 Obtain sample by nasopharyngeal swab ordered. ef1 12:31 ketorolac 30 mg IVP once ordered. ef1 12:31 Urine Toxicology Ordered. EDMS 12:31 -Influenza A&B Rapid Antigen - Nose Ordered. EDMS 12:33 Financial registration complete. mpb 12:38 Undo -Financial registration. mpb 12:41 GATS (NEGATIVE STREP SCREEN) Ordered. EDMS 12:53 Financial registration complete. mpb 12:53 [facility] Payment Agreement was scanned into [employer] and attached to record. mpb 13:08 Amylase Reviewed. ef1 13:08 CBC with Diff Reviewed. ef1 13:08 Liver Profile Reviewed. ef1 13:08 Basic Metabolic Profile Reviewed. ef1 13:08 Lipase Reviewed. ef1 13:08 -Influenza A&B Rapid Antigen - Nose Reviewed. ef1 13:13 NS 0.9% 1000 ml IV at bolus once ordered. ef1 13:27 Urinalysis Reviewed. ef1 13:53 Urine Toxicology Reviewed. ef1 14:15 T-Sheet-- Draft Copy was scanned into [employer] and attached to record. gb Point of Care Testing: Urine : 13:12 hCG Reading: Negative; Control Reading: Positive; js13 13:13 hCG Reading: Negative; jam1 Ranges: Administered Medications: 12:24 Drug: NS 0.9% 1000 ml [sodium chloride 0.9 % intravenous solution] Route: IV; Rate: js13 bolus; Site: left antecubital; 13:32 Follow up: IV Status: Completed infusion; IV Intake: 1000ml js13 12:24 Drug: Ondansetron 4 mg [ondansetron HCl 2 mg/mL intravenous solution (2 mL)] Route: js13 IVP; Site: left antecubital; 12:50 Follow up: Response: Nausea is resolved 13 13:17 Drug: ketorolac 30 mg [ketorolac 30 mg/mL (1 mL) injection solution (1 mL)] Route: IVP; 13 Site: left antecubital; 13:32 Follow up: Pain 2/10 Adult; Response: Pain is decreased 13:17 Drug: NS 0.9% 1000 ml [sodium chloride 0.9 % intravenous solution] Route: IV; Rate: js13 bolus; Site: left antecubital; 13:49 Follow up: IV Status: Completed infusion; IV Intake: 1000ml Signatures: Dispatcher [employer] EDHelene Treadwell RN RN [facility] Sarah Kaye, Reg Reg gb Bobbi Rod PAJosette PA-C ef1 Eva ReynosoRN RN js13 Dennis Garcia, Reg Reg mpb The chart was reviewed and I authenticate all verbal orders and agree with the evaluation and treatment provided.Attachments: 12:53 [facility] [place] [facility] [place] Agreement mpb 14:15 T-Sheet-- Draft Copy Chart Complete MTDD
== END 2016-12-09 14:06 | disposition home or self-care (01) ==
LOC: M ED 11:43
DX: R11.2 Nausea with vomiting, unspecified (principal); R19.7 Diarrhea, unspecified; B00.9 Herpesviral infection, unspecified; Z79.899 Other long term (current) drug therapy
CPT/HCPCS: 36415; 80048; 80076; 80306; 81001; 81025; 82150; 83690; 85025; 87086; 87804; 87880; 96361; 96374; 96375; 99284; J1885; J2405